=== PATIENT | female | born 1980 | race Caucasian/White ===

== ENCOUNTER 2017-01-07 22:36 | Emergency (ER) | payer MEDICAID ==
[~2017-01-07] VITALS: Ht 157.5 cm; Wt 66.7 kg
[2017-01-07 22:40] VITALS: BP 141/59
--- NOTE | 2017-01-07 23:54 | NUR ---
PT TAKEN T BED 12
[2017-01-08] MEDS ORDERED: LORazepam 2 MG/ML VIAL IM ONE (00:15)
--- NOTE | 2017-01-08 00:35 | NUR ---
36Y/F PRESENTS TO ER C/O DIZZINESS, SOB, AND CHEST TIGHTNESS. NKA, NO PMH. PT STATES SINCE YESTERDAY SHE HAS FELT ANXIOUS W/ SOB AND CHEST TIGHTNESS. PT DENIES CARDIAC HISTORY, PAIN 4/10 TO MID CHEST. EVEN, UNLABORED, RESPIRATIONS. PT IN BED WITH AT BEDSIDE.
[2017-01-08 00:53] VITALS: BP 117/68
--- NOTE | 2017-01-08 01:05 | NUR ---
Patient discharged with v/s stable. Written and verbal after care instructions given and explained. Patient alert, oriented and verbalized understanding of instructions. Ambulatory with steady gait. All questions addressed prior to discharge. ID band removed. Patient advised to follow up with PMD. Rx of XANAX 0.5MG given. Patient educated on indication of medication including possible reaction and side effects. Opportunity to ask questions provided and answered.
== END 2017-01-08 01:05 | disposition home or self-care (01) ==
LOC: MED 22:36
DX: R06.02 Shortness of breath (principal); F41.9 Anxiety disorder, unspecified; R03.0 Elevated blood-pressure reading, without diagnosis of hypertension
CPT/HCPCS: 81002; 81025; 93005; 96372; 99283; J2060

== ENCOUNTER 2018-10-08 18:31 | Emergency (ER) | payer MEDICAID ==
[~2018-10-08] VITALS: Ht 157.5 cm; Wt 73.1 kg
[2018-10-08 18:41] VITALS: BP 120/74
--- NOTE | 2018-10-08 18:41 | NUR ---
Patient ambulated to bed 8. RN evaluating patient at bedside.
--- NOTE | 2018-10-08 19:00 | NUR ---
PT BIB W/ C/O DIZZINESS, NAUSEA AND FATIGUE FOR APPROX 1 WEEK. DENIES VOMITING, DIARRHEA OR FEVER. PT ALERT AND ORIENTED TO PERSON, PLACE TIME AND EVENT. PUPILS EQUAL AND REACTIVE TO LIGHT BILATERALLY. NO FACIAL DROOP NOTED. NO SMILE DEFICIT NOTED. SPEECH IS CLEAR. 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 BILATERAL FOOT PUSH EQUAL. CONNECTED TO PHOTO FINISH PHOTOGRAPHER; VSS. ERMD TO EVALUATE PT. HX; HEART MURMUR RX; DENIES
--- NOTE | 2018-10-08 19:00 | NUR ---
ACCU CHECK 104 AT THIS TIME.
--- NOTE | 2018-10-08 19:25 | NUR ---
REPORT GIVEN TO JO BALL; TRANSFER OF CARE AT THIS TIME.
--- NOTE | 2018-10-08 19:26 | NUR ---
RECEIVED BEDSDIE REPORT BY JO VERGARA.
[2018-10-08] MEDS ORDERED: MECLIZINE 25 MG TAB PO ONE (19:40)
--- NOTE | 2018-10-08 19:56 | NUR ---
EKG PERFORMED AT BEDSIDE WITH FAMILY MEMBER PRESENT
--- NOTE | 2018-10-08 20:06 | NUR ---
LAB DRAW COMPLETED AT THIS TIME
[2018-10-08 20:17] LABS: BASOPHILS % (AUTO) 0.5 % (0.0-2.0); EOSINOPHILS # (AUTO) 0.1 K/uL (0-0.4); EOSINOPHILS % (AUTO) 0.9 % (0.0-4.0); HEMATOCRIT 38.8 % (36-48); HEMOGLOBIN 13.3 g/dL (12.0-16.0); LYMPHOCYTES # (AUTO) 1.9 K/uL (2.5-16.5); LYMPHOCYTES % (AUTO) 32.8 % (20.5-51.1); MEAN CORPUSCULAR HEMOGLOBIN 32 pg (27-31); MEAN CORPUSCULAR HGB CONC 34 g/dL (33-37); MEAN CORPUSCULAR VOLUME 91.7 fL (80-94); MONOCYTES # (AUTO) 0.3 K/uL (0.8-1.0); MONOCYTES % (AUTO) 5.5 % (1.7-9.3); NEUTROPHILS # (AUTO) 3.5 K/uL (1.8-7.7); NEUTROPHILS % (AUTO) 60.3 % (42.2-75.2); PLATELET COUNT (AUTO) 200 K/uL (140-450); RED BLOOD CELL COUNT(AUTO) 4.24 MIL/uL (4.20-5.40); WHITE BLOOD COUNT (AUTO) 5.8 K/uL (4.8-10.8)
[2018-10-08 20:36] LABS: ANION GAP 12.2 (8-16); CARBON DIOXIDE 27.5 mmol/L (21-32); CREATININE 0.6 mg/dL (0.6-1.3); POTASSIUM 3.7 mmol/L (3.5-5.1)
[2018-10-08 20:41] LABS: ALBUMIN 3.9 g/dL (3.4-5.0); TOTAL BILIRUBIN 0.2 mg/dL (0.0-1.0)
[2018-10-08 20:42] VITALS: BP 114/71
--- NOTE | 2018-10-08 20:43 | NUR ---
Patient discharged with v/s stable. Written and verbal after care instructions given and explained. Patient alert, oriented and verbalized understanding of instructions. Ambulatory with steady gait. All questions addressed prior to discharge. ID band removed. Patient advised to follow up with PMD. Rx of MECLIIZINE given. Patient educated on indication of medication including possible reaction and side effects. Opportunity to ask questions provided and answered.
== END 2018-10-08 20:42 | disposition home or self-care (01) ==
LOC: MED 18:31
DX: H81.10 Benign paroxysmal vertigo, unspecified ear (principal)
CPT/HCPCS: 36415; 80053; 81002; 81025; 85025; 93005; 99284; J8597

== ENCOUNTER 2023-12-02 09:12 | Observation (INO) | payer MEDICAID, OTHER ==
[~2023-12-02] VITALS: Ht 162.6 cm; Wt 78.9 kg
[2023-12-02 09:22] VITALS: BP 138/95; PULSE 78; RESP 18; TEMP 97.7; O2SAT 99
[2023-12-02 10:49] LABS: BASOPHILS % (AUTO) 0.5 % (0.0-2.0); EOSINOPHILS % (AUTO) 0.4 % (0.0-4.0); HEMATOCRIT 43.2 % (36-48); HEMOGLOBIN 14.9 g/dL (12.0-16.0); LYMPHOCYTES # (AUTO) 1.1 K/uL (2.5-16.5); LYMPHOCYTES % (AUTO) 20.1 % (20.5-51.1); MEAN CORPUSCULAR HEMOGLOBIN 32 pg (27-31); MEAN CORPUSCULAR HGB CONC 35 g/dL (33-37); MONOCYTES # (AUTO) 0.2 K/uL (0.8-1.0); MONOCYTES % (AUTO) 3.8 % (1.7-9.3); NEUTROPHILS # (AUTO) 4.3 K/uL (1.8-7.7); NEUTROPHILS % (AUTO) 75.2 % (42.2-75.2); PLATELET COUNT (AUTO) 239 K/uL (140-450); RED BLOOD CELL COUNT(AUTO) 4.69 MIL/uL (4.20-5.40); RED CELL DISTRIBUTION WIDTH 13.2 % (11.6-13.7); WHITE BLOOD COUNT (AUTO) 5.7 K/uL (4.8-10.8)
[2023-12-02 11:11] LABS: INR 0.94 (0.8-1.2); PARTIAL THROMBOPLASTIN TIME 22.8 secs (22-35.6); PROTHROMBIN TIME 9.9 secs (10.8-13.4)
[2023-12-02 11:24] VITALS: PULSE 67; RESP 12; O2SAT 95
[2023-12-02] MEDS: ALBUTEROL 0.083% 2.5 MG/3 ML NEBU INH ONE (11:24)
[2023-12-02 11:56] LABS: ANION GAP 10.5 (8-16); CALCIUM 8.9 mg/dL (8.5-10.1); CARBON DIOXIDE 28.5 mmol/L (21-32); CREATININE 0.7 mg/dL (0.6-1.3)
[2023-12-02 12:05] LABS: APPEARANCE,URINE CLEAR (CLEAR); BILIRUBIN,URINE NEGATIVE (NEGATIVE); BLOOD, URINE NEGATIVE (NEGATIVE); COLOR,URINE YELLOW (YELLOW); LEUKOCYTE ESTERASE ,URINE NEGATIVE (NEGATIVE); NITRITE, URINE NEGATIVE (NEGATIVE); PROTEIN,URINE NEGATIVE (NEGATIVE); UGLUCOSE NEGATIVE (NEGATIVE); UROBILINOGEN,URINE 0.2 EU/dL (0.2 - 1)
[2023-12-02] MEDS: hePARIN / DEXT 5% PREMIX 250 ML IV SCH ×2 (13:54→14:49)
[2023-12-02] MEDS ORDERED: ACETAMINOPHEN 325 MG TAB PO PRN (14:00)
[2023-12-02] MEDS ORDERED: ONDANSETRON 4 MG/2 ML VIAL IVP PRN (14:00)
[2023-12-02] MEDS ORDERED: POTASSIUM CHLORIDE 10 MEQ TABER PO PRN (14:00)
[2023-12-02] MEDS ORDERED: MAGNESIUM OXIDE 400 MG TAB PO PRN (14:00)
[2023-12-02] MEDS ORDERED: MORPHINE SULFATE 4 MG/ML SYR IVP PRN (14:00)
[2023-12-02] MEDS ORDERED: KCL 20 MEQ IN 100 mL PREMIX 200 ML IV PRN (14:00)
[2023-12-02] MEDS ORDERED: HYDROcodone/APAP 5/325 MG 1 TAB TAB PO PRN (14:00)
[2023-12-02] MEDS: HEPARIN PER PHARMACY MC PRN (14:49)
[2023-12-02] MEDS ORDERED: hePARIN / DEXT 5% PREMIX 250 ML IV SCH (15:40)
[2023-12-02 16:53] VITALS: PULSE 80; RESP 17; O2SAT 96
[2023-12-02 20:00] VITALS: BP 128/73; PULSE 67; PULSE 70; RESP 18; TEMP 97.5; O2SAT 98
[2023-12-03] VITALS: BP 105/67; PULSE 61; PULSE 63; RESP 18; TEMP 96.9; O2SAT 98
[2023-12-03 03:14] LABS: ANION GAP 9.3 (8-16); CALCIUM 8.6 mg/dL (8.5-10.1); CARBON DIOXIDE 29.3 mmol/L (21-32); CREATININE 0.8 mg/dL (0.6-1.3); POTASSIUM 3.6 mmol/L (3.5-5.1)
[2023-12-03 03:22] LABS: BASOPHILS # (AUTO) 0.1 K/uL (0.00-0.22); BASOPHILS % (AUTO) 1.2 % (0.0-2.0); EOSINOPHILS # (AUTO) 0.1 K/uL (0-0.4); EOSINOPHILS % (AUTO) 1.5 % (0.0-4.0); HEMATOCRIT 40.8 % (36-48); LYMPHOCYTES # (AUTO) 3.1 K/uL (2.5-16.5); LYMPHOCYTES % (AUTO) 45.6 % (20.5-51.1); MEAN CORPUSCULAR HEMOGLOBIN 32 pg (27-31); MEAN CORPUSCULAR HGB CONC 34 g/dL (33-37); MEAN CORPUSCULAR VOLUME 92.4 fL (80-94); MONOCYTES # (AUTO) 0.3 K/uL (0.8-1.0); NEUTROPHILS # (AUTO) 3.1 K/uL (1.8-7.7); NEUTROPHILS % (AUTO) 46.7 % (42.2-75.2); PLATELET COUNT (AUTO) 234 K/uL (140-450); RED BLOOD CELL COUNT(AUTO) 4.42 MIL/uL (4.20-5.40); RED CELL DISTRIBUTION WIDTH 13.1 % (11.6-13.7); WHITE BLOOD COUNT (AUTO) 6.7 K/uL (4.8-10.8)
[2023-12-03 04:00] VITALS: BP 105/60; PULSE 60; PULSE 65; RESP 18; TEMP 97.1; O2SAT 98
[2023-12-03 08:00] VITALS: BP 124/75; PULSE 67; PULSE 88; RESP 18; TEMP 97.5; O2SAT 98; O2SAT 99
[2023-12-03 12:00] VITALS: BP 110/71; PULSE 59; PULSE 63; RESP 18; TEMP 97.6; O2SAT 100
[2023-12-03] MEDS ORDERED: APIX5TAB PO (12:20)
[2023-12-03 15:22] VITALS: BP 110/71; PULSE 59; RESP 18; TEMP 97.6
[2023-12-03] MEDS ORDERED: MEDS-TO-BEDS MC SCH (21:00)
[2023-12-03] MEDS ORDERED: APIXABAN 2.5 MG TAB PO SCH (21:00)
== END 2023-12-03 16:05 | disposition home or self-care (01) ==
LOC: MED 09:12 → MTU 13:57
PROVIDERS: ADMIT Student in an Organized Health Care Education/Training Program; ATTEND Student in an Organized Health Care Education/Training Program
DX: I26.99 Other pulmonary embolism without acute cor pulmonale (principal); R55 Syncope and collapse; R53.1 Weakness; Z79.899 Other long term (current) drug therapy
CPT/HCPCS: 36415; 71045; 71275; 80048; 81003; 82948; 83880; 84484; 85025; 85379; 85610; 85730; 87081; 93005; 94640; 94760; 96365; 96366; 96376; 99285; G0378; J1644; J7613; Q9967